=== PATIENT | female | born 1945 ===

== ENCOUNTER 2022-08-02 07:00 | Outpatient (CLI) | payer MEDICARE, OTHER | END 2022-08-02 23:59 | disposition home or self-care (01) | LOC: LAB.S 07:00 | PROVIDERS: ATTEND Registered Nurse | DX: N30.00 Acute cystitis without hematuria (principal); R82.79 Other abnormal findings on microbiological examination of urine | CPT/HCPCS: 87086 ==

== ENCOUNTER 2023-09-19 10:31 | Outpatient (CLI) | payer MEDICARE ==
--- NOTE | 2023-09-19 20:48 | XRAY Report ---
PROCEDURE: Chest 2V INDICATIONS: LEFT SIDED RIB PAIN TECHNIQUE: 2 views of the chest were acquired. COMPARISON: None. FINDINGS: Surgical changes and devices: None. Lungs and pleura: No pleural effusions or pneumothorax. Lungs are clear. Mediastinum: Mediastinal contours appear normal. Heart size is normal. Bones and chest wall: No suspicious bony lesions. Overlying soft tissues appear unremarkable. IMPRESSION: No acute cardiopulmonary process. Reviewed by: Michelle Kwok MD on 09/19/2023 8:47 PM PDT Approved by: Michelle Kwok MD on 09/19/2023 8:47 PM PDT Station ID: [id number]
== END 2023-09-19 10:32 | disposition home or self-care (01) ==
LOC: DI 10:31
PROVIDERS: ATTEND Emergency Medicine
DX: R07.81 Pleurodynia (principal)

== ENCOUNTER 2023-11-03 10:18 | Emergency (ER) | payer MEDICARE ==
[2023-11-03 10:41] VITALS: BP 116/57; O2SAT 98
[2023-11-03 10:51] LABS: CLARITY,URINE SL. CLOUDY (CLEAR)
[2023-11-03 10:52] LABS: BILIRUBIN,URINE COLOR INTERFERENCE (NEGATIVE)
[2023-11-03 10:56] LABS: BACTERIA,URINE Rare /HPF (None Seen); SQUAMOUS EPITHELIAL CELL,UR FEW Squamous (<= Few); WBC,URINE >25 /HPF (0-5)
[2023-11-03 10:57] LABS: MUCUS,URINE Few Strands
--- NOTE | 2023-11-03 10:59 | ED Physician Documentation ---
History of Present Illness - Stated complaint Stated Complaint: DIZZY, FEMALE - Chief complaint Chief Complaint: UTI - History obtained from History obtained from: Patient - History of Present Illness Timing: Today Pain level max: 4 Pain level now: 3 - Additonal information Additional information: Patient is a 78-year-old female who complains of dysuria and urinary frequency x 1 week. Has been taking Azo without relief. No fevers. No chills. No nausea or vomiting. Worse with urination, nothing makes it better. Feels similar to prior UTIs. Review of Systems Constitutional: denies: Fever, Chills GI: denies: Vomiting : reports: Dysuria, Frequency, Hesitancy Skin: denies: Rash PD PAST MEDICAL HISTORY - Past Medical History Past Medical History: No - Past Surgical History Past Surgical History: Yes /[employer]IX[employer]: Hysterectomy - Present Medications Home Medications: Ambulatory Orders Medication Instructions Recorded Confirmed Nitrofurantoin [Macrobid] 100 mg PO BID #10 cap 11/03/23 - Allergies Allergies/Adverse Reactions: Allergies Allergy/AdvReac Type Severity Reaction Status Date / Time codeine Allergy Itching Verified 11/03/23 10:36 Penicillins Allergy Anaphylaxis Verified 11/03/23 10:35 - Social History Does the pt smoke?: Yes Smoking Status: Current every day smoker Does the pt drink ETOH?: No Does the pt have substance abuse?: No Substance Use and Type: Marijuana - Immunizations Immunizations are current?: Yes - POLST Patient has POLST: No PD ED PE NORMAL - Vitals Vital signs reviewed: Yes - General General: Alert and oriented X 3, No acute distress, Well developed/nourished - HEENT HEENT: Moist mucous membranes - Neck Neck: Supple, no meningeal sign - Cardiac Cardiac: RRR, Strong equal pulses - Respiratory Respiratory: No respiratory distress, Clear bilaterally - Abdomen Abdomen: Soft, Non tender, Non distended - Back Back: No CVA TTP, No spinal TTP - Derm Derm: Warm and dry - Neuro Neuro: Alert and oriented X 3 - Psych Psych: Normal mood, Normal affect Results - Vitals Vitals: Vital Signs - 24 hr 11/03/23 10:32 Temperature 36 C L Heart Rate 75 Respiratory 20 Rate Blood Pressure 116/57 L O2 Saturation 98 Oxygen O2 Source Room air - Labs Labs: Laboratory Tests 11/03/23 10:28 Urine Color ORANGE Urine Clarity SL. CLOUDY Urine pH Ur Specific [place] Urine Protein Urine Glucose (UA) Urine Ketones Urine Occult Blood Urine Nitrite Urine Bilirubin COLOR INTERFERENCE Urine Urobilinogen Ur Leukocyte Esterase Urine RBC 11-25 H Urine WBC >25 H Ur Squamous Epith Cells FEW Squamous Urine Bacteria Rare Urine Mucus Few Strands Ur Microscopic Review INDICATED Urine Culture Comments NOT INDICATED PD Medical Decision Making - ED course Complexity details: reviewed results, considered differential, d/w patient ED course: 78-year-old female with UTI symptoms. Urinalysis shows interference secondary to Azo but microscopy is consistent with UTI. Will place on antibiotics for home. She is well-appearing, nontoxic. Afebrile. No evidence of pyelonephritis. Patient counseled regarding signs and symptoms for which I believe and urgent re-evaluation would be necessary. Patient with good understanding of and agreement to plan and is comfortable going home at this time This document was made in part using voice recognition software. While efforts are made to proofread this document, sound alike and grammatical errors may occur. Departure - Departure Disposition: 01 Home, Self Care Clinical Impression: Urinary tract infection Qualifiers: Urinary tract infection type: acute cystitis Hematuria presence: without hematuria Qualified Code(s): N30.00 - Acute cystitis without hematuria Condition: Good Instructions: ED UTI Cystitis Female Follow-Up: your,doctor as needed [Other] Prescriptions: Nitrofurantoin [Macrobid] 100 mg PO BID #10 cap Comments: Please take all antibiotics until gone. Please return if you worsen. Your prescription was sent to [facility]. Forms: PCP List Discharge Date/Time: 11/03/23 11:26
[2023-11-03] MEDS: NITROFURANTOIN MACRO 100 MG CAPSULE PO STA (11:23)
[2023-11-03] MEDS: PHENAZOPYRIDINE 100 MG TABLET PO STA (11:23)
== END 2023-11-03 11:26 | disposition home or self-care (01) ==
LOC: ED 10:18
DX: N30.00 Acute cystitis without hematuria (principal); F17.200 Nicotine dependence, unspecified, uncomplicated
CPT/HCPCS: 81001; 99283; A9270; 81003; 87086

== ENCOUNTER 2023-11-12 08:00 | Outpatient (CLI) | payer MEDICARE ==
[2023-11-13 01:19] LABS: BACTERIAL VAGINOSIS DNA NEGATIVE (NEGATIVE); CANDIDA GLABRATA DNA NEGATIVE (NEGATIVE); CANDIDA GROUP DNA NEGATIVE (NEGATIVE); CANDIDA KRUSEI DNA NEGATIVE (NEGATIVE); TRICHOMONAS VAGINALIS DNA NEGATIVE (NEGATIVE)
== END 2023-11-12 23:59 | disposition home or self-care (01) ==
LOC: LAB.S 08:00
PROVIDERS: ATTEND Registered Nurse
DX: N30.00 Acute cystitis without hematuria (principal); R30.0 Dysuria; L29.8 Other pruritus
CPT/HCPCS: 81514; 87086